=== PATIENT | female | born 1960 | race Caucasian/White ===

== ENCOUNTER 2018-07-06 15:34 | Emergency (ER) | payer MEDICAID ==
[~2018-07-06] VITALS: Ht 162.6 cm; Wt 63.5 kg
--- NOTE | 2018-07-06 15:43 | NUR ---
PATIENT AMBULATED TO BED 9 AT THIS TIME.
[2018-07-06 15:47] VITALS: BP 125/87
--- NOTE | 2018-07-06 15:50 | NUR ---
PT GIVEN URINE CUP, REPORT TO JI HENRY
--- NOTE | 2018-07-06 16:03 | NUR ---
57 year old female came into the ED due to flank pain since Tuesday; the pain on her side radiates to epigastric region (04/18). Pt states that in April she had a kidney infection and her current s/sx feels very similiar.Denies fever, chills, diarrhea, urinary s/sx. Pts states that she feels burning in her side and epigastric region. Lungs are clear bilaterally, s1s2 present, abd is soft, round, tender. Pts mentioned her lower limbs feel achey and sluggish; no edema present, +5 strength noted bilaterally, able to sense both sharp and dull sensation bilaterally, pedal pulses present bilaterally.
[2018-07-06] MEDS ORDERED: KETOROLAC 60 MG/2 ML VIAL IM ONE (16:10)
[2018-07-06 16:46] VITALS: BP 122/76
--- NOTE | 2018-07-06 16:46 | NUR ---
D/c pt home with maryer; they ambulated to the exit. Reviewed pt dx and discharge packet. Educated pt on Dx, new rx, and on s/sx of when to call 911, return to ED and when to call PCP. Pt and daughter denied all further questions. Vitals were taken, wrist band removed.
== END 2018-07-06 16:46 | disposition home or self-care (01) ==
LOC: MED 15:34
DX: N12 Tubulo-interstitial nephritis, not specified as acute or chronic (principal); R51 Headache; E11.9 Type 2 diabetes mellitus without complications; Z90.49 Acquired absence of other specified parts of digestive tract
CPT/HCPCS: 81002; 81025; 96372; 99283; J1885